=== PATIENT | female | born 1945 | race Caucasian/White ===

== ENCOUNTER 2017-04-29 14:44 | Outpatient (CLI) | payer MEDICARE ==
[2017-04-30 02:31] LABS: VITAMIN D, 25-HYDROXY 59 ng/mL (30-100)
== END 2017-04-29 14:49 | disposition home or self-care (01) ==
LOC: LAB 14:44
PROVIDERS: ATTEND Internal Medicine Endocrinology, Diabetes & Metabolism
DX: E55.9 Vitamin D deficiency, unspecified (principal); M81.0 Age-related osteoporosis without current pathological fracture
CPT/HCPCS: 36415; 82306; 82607